=== PATIENT | male | born 1960 | race Caucasian/White ===

== ENCOUNTER 2022-07-12 16:49 | Emergency (ER) | payer OTHER ==
[~2022-07-12] VITALS: Ht 162.6 cm; Wt 88.5 kg
== END 2022-07-12 20:33 | disposition home or self-care (01) ==
LOC: ER 16:49
DX: S00.93XA Contusion of unspecified part of head, initial encounter (principal); W19.XXXA Unspecified fall, initial encounter; Y93.9 Activity, unspecified; Y92.59 Other trade areas as the place of occurrence of the external cause; Y99.9 Unspecified external cause status